=== PATIENT | female | born 1990 | race Caucasian/White ===

== ENCOUNTER 2023-05-13 10:45 | Day surgery (SDC) | payer OTHER ==
[2023-05-13] MEDS ORDERED: LIDOCAINE HCL 2% 100 MG/5 ML IJ ONE (10:46)
[2023-05-13 11:25] LABS: HCG URINE TEST NEGATIVE (NEGATIVE)
[2023-05-13] MEDS ORDERED: DIPRIVAN 200 MG/20 ML IV ONE (12:26)
[2023-05-13] MEDS ORDERED: Lactated Ringers 1,000 ML IV ONE (14:27)
--- NOTE | 2023-05-13 16:25 | XRAY ---
Indication: Right C2-C4 MBB. Intraoperative fluoroscopy provided for 15 seconds. 2 digital spot image submitted for interpretation demonstrates posterior needle tips projecting over the expected right C2-C4 nerve roots. Correlate with intraoperative findings/report.
--- NOTE | 2023-05-13 16:37 | XRAY ---
15 seconds of fluoroscopy was used in surgery for a right C2-C4 MBB.
== END 2023-05-13 12:55 | disposition home or self-care (01) ==
LOC: SDC-PAIN 10:45
PROVIDERS: ATTEND Psychiatry & Neurology Pain Medicine
DX: M47.812 Spondylosis without myelopathy or radiculopathy, cervical region (principal)
CPT/HCPCS: 64490; 64491; 72040; 77002; 81025; J2704

== ENCOUNTER 2023-06-09 14:35 | Day surgery (SDC) | payer OTHER ==
[2023-06-09] MEDS ORDERED: XYLOCAINE-MPF 1% 5ML SDV IJ ONE (14:36)
[2023-06-09] MEDS ORDERED: BUPIVACAINE 0.5% VIAL IJ ONE (14:36)
[2023-06-09 14:56] LABS: HCG URINE TEST NEGATIVE (NEGATIVE)
[2023-06-09] MEDS ORDERED: DIPRIVAN 200 MG/20 ML IV ONE (16:15)
[2023-06-09] MEDS ORDERED: Lactated Ringers 1,000 ML IV ONE (17:12)
--- NOTE | 2023-06-09 17:15 | XRAY ---
Indication: Right C2-C4 MBB. Intraoperative fluoroscopy provided for 19 seconds. 2 digital spot images submitted for interpretation demonstrates posterior needle tips projecting over the right C2-C4 nerve roots. Correlate with intraoperative findings/report.
--- NOTE | 2023-06-09 17:42 | XRAY ---
19 seconds of fluoroscopy was used in surgery for a right C2-C4 MBB.
== END 2023-06-09 16:50 | disposition home or self-care (01) ==
LOC: SDC-PAIN 14:35
PROVIDERS: ATTEND Psychiatry & Neurology Pain Medicine
DX: M47.812 Spondylosis without myelopathy or radiculopathy, cervical region (principal)
CPT/HCPCS: 64490; 64491; 72040; 77002; 81025; J2704

== ENCOUNTER 2023-08-11 12:31 | Day surgery (SDC) | payer OTHER ==
[2023-08-11] MEDS ORDERED: Xylocaine-Mpf 2% 5 Ml Vial IJ ONE (12:32)
[2023-08-11 13:38] LABS: HCG URINE TEST NEGATIVE (NEGATIVE)
[2023-08-11] MEDS ORDERED: DIPRIVAN 200 MG/20 ML IV ONE (15:01)
[2023-08-11] MEDS ORDERED: Versed 2 MG/2 ML Injection ONE (15:02)
[2023-08-11] MEDS ORDERED: Lactated Ringers 1,000 ML IV ONE (16:19)
--- NOTE | 2023-08-11 16:27 | XRAY ---
Indication: Left C2-C4 MBB. Intraoperative fluoroscopy provided for 11 seconds. 2 digital spot image submitted for interpretation demonstrates posterior needle tips projecting over the expected left C2-C4 nerve roots. Correlate with intraoperative findings/report.
--- NOTE | 2023-08-11 16:51 | XRAY ---
11 seconds of fluoroscopy was used in surgery for a left C2-C4 MBB.
== END 2023-08-11 15:40 | disposition home or self-care (01) ==
LOC: SDC-PAIN 12:31
PROVIDERS: ATTEND Psychiatry & Neurology Pain Medicine
DX: M47.812 Spondylosis without myelopathy or radiculopathy, cervical region (principal)
CPT/HCPCS: 64490; 64491; 72040; 77002; 81025; J2250; J2704

== ENCOUNTER 2023-09-15 12:02 | Day surgery (SDC) | payer OTHER ==
[2023-09-15] MEDS ORDERED: Depo-Medrol 40 MG/ML IM ONE (12:03)
[2023-09-15] MEDS ORDERED: XYLOCAINE-MPF 1% 5ML SDV IJ ONE (12:03)
[2023-09-15] MEDS ORDERED: BUPIVACAINE 0.5% VIAL IJ ONE (12:03)
[2023-09-15 12:54] LABS: HCG URINE TEST NEGATIVE (NEGATIVE)
[2023-09-15] MEDS ORDERED: DIPRIVAN 200 MG/20 ML IV ONE (14:38)
[2023-09-15] MEDS ORDERED: Versed 2 MG/2 ML Injection ONE (14:38)
[2023-09-15] MEDS ORDERED: Lactated Ringers 1,000 ML IV ONE ×2 (14:42→15:14)
--- NOTE | 2023-09-15 16:33 | XRAY ---
Indication: Right C2-C4 RFA. Intraoperative fluoroscopy provided for 29 seconds. 4 digital spot image submitted for interpretation demonstrates posterior needle tips projecting over the expected right C2-C4 nerve roots. Correlate with intraoperative findings/report.
--- NOTE | 2023-09-15 16:40 | XRAY ---
29 seconds of fluoroscopy was used in surgery for a right C2-C4 RFA.
== END 2023-09-15 15:29 | disposition home or self-care (01) ==
LOC: SDC-PAIN 12:02
PROVIDERS: ATTEND Psychiatry & Neurology Pain Medicine
DX: M47.812 Spondylosis without myelopathy or radiculopathy, cervical region (principal)
CPT/HCPCS: 64635; 64636; 72040; 77002; 81025; J1030; J2250; J2704